=== PATIENT | male | born 1955 | race Two or more races ===

== ENCOUNTER 2018-02-02 21:12 | Inpatient (IN) | payer MEDICARE, MEDICAID ==
[~2018-02-02] VITALS: Ht 172.7 cm; Wt 90.1 kg
[~2018-02-02 21:12] MED LIST: AMLO10TA PO; ASPI-611 PO; CALCIUM ACETATE; CARV25TA PO; CLOP75TA15 PO; FURO80TA3 PO; HYDR-4070 PO; LANT1000 PO; LANTUS SUBCUT; LOSA100T28 PO; MULT-342 PO; SIMV20TA PO
[2018-02-02 22:27] LABS: BASOPHILS % (AUTO) 0.3 % (0-1); EOSINOPHILS # (AUTO) 0.2 X10'3 (0-0.9); EOSINOPHILS % (AUTO) 2.3 % (0-6); HEMOGLOBIN 11.4 g/dl (14.0-17.9); LYMPHOCYTES # (AUTO) 0.7 X10'3 (1.1-4.8); LYMPHOCYTES % (AUTO) 10.2 % (21-51); MEAN CORPUSCULAR HEMOGLOBIN 29.3 PG (27.0-31.0); MEAN CORPUSCULAR HGB CONC 34.5 % (33.0-36.5); MEAN CORPUSCULAR VOLUME 84.9 FL (78-98); MEAN PLATELET VOLUME 8.5 FL (7.4-10.4); MONOCYTES # (AUTO) 0.7 X10'3 (0-0.9); MONOCYTES % (AUTO) 10.2 % (2-12); NEUTROPHILS # (AUTO) 5.2 X10'3 (1.8-7.7); PLATELET COUNT 154 X10'3 (140-440); RED BLOOD COUNT 3.89 X10'6 (4.70-6.10); RED CELL DISTRIBUTION WIDTH 16.1 % (11.5-14.5); WHITE BLOOD COUNT 6.7 X10'3 (4.5-11.0)
[2018-02-02 22:32] LABS: PARTIAL THROMBOPLASTIN TIME 27 SECONDS (22-32); PROTHROMBIN TIME 10.1 SECONDS (9.0-12.0)
[2018-02-02 22:34] LABS: ALANINE AMINOTRANSFERASE 19 U/L (12-78); ALBUMIN 4.1 G/DL (3.4-5.0); ALBUMIN/GLOBULIN RATIO 1.4 (1.1-1.5); ALKALINE PHOSPHATASE 193 IU/L (46-116); ANION GAP 10 (8-16); ASPARTATE AMINO TRANSFERASE 24 U/L (10-37); BILIRUBIN,TOTAL 0.5 MG/DL (0.1-1.0); BLOOD UREA NITROGEN 31 MG/DL (7-18); BUN/CREATININE RATIO 28.4 (5.4-32.0); CALCIUM 9.2 MG/DL (8.5-10.1); CHLORIDE 103 MMOL/L (99-107); CREATININE 1.09 MG/DL (0.60-1.10); GLUCOSE 132 MG/DL (70-104); POTASSIUM 4.2 MMOL/L (3.5-5.1); SODIUM 137 MMOL/L (135-145); TOTAL PROTEIN 7.1 G/DL (6.4-8.2); eGFR 68 ML/MIN
[2018-02-02] MEDS ORDERED: FURO-150 PO (22:42)
[2018-02-02] MEDS ORDERED: HYDR100T27 PO (22:42)
[2018-02-02] MEDS ORDERED: CARV6.253 PO (22:42)
[2018-02-02] MEDS ORDERED: LOSA25TA96 PO (22:43)
[2018-02-02] MEDS ORDERED: TACR1CAP28 PO (22:43)
[2018-02-02] MEDS ORDERED: PANT40TA4 PO (22:43)
[2018-02-02] MEDS ORDERED: MYCO250C46 PO (22:43)
[2018-02-02] MEDS ORDERED: FINA5TAB11 PO ×2 (22:43→22:44)
[2018-02-02] MEDS ORDERED: FERR325T28 PO (22:43)
[2018-02-02] MEDS ORDERED: FLO0.4C PO (22:43)
[2018-02-02] MEDS ORDERED: nitroGLYCERIN 1gm ointment UD TP ONE (23:00)
[2018-02-03] MEDS: cloNIDine 0.1 mg tablet PO SCH ×4 (00:05→19:59)
[2018-02-03] MEDS ORDERED: HYDROcodone/acetaminophen 10/325mg tab PO PRN (00:25)
[2018-02-03] MEDS ORDERED: metoclopramide 5 mg/ml inj IV PRN (00:25)
[2018-02-03] MEDS ORDERED: HYDROcodone/acetaminophen 5mg/325mg tablet PO PRN (00:25)
[2018-02-03] MEDS ORDERED: HYDROmorphone inj. 0.5 MG/0.5 ML DISP.SYRIN IV PRN ×2 (00:25)
[2018-02-03] MEDS ORDERED: normal saline 1000ml 1,000 ML IV SCH (00:25)
[2018-02-03] MEDS ORDERED: diphenhydrAMINE 25mg capsule PO PRN (00:25)
[2018-02-03] MEDS ORDERED: morphine 4 MG/ML inj SYRINge IV PRN ×2 (00:25)
[2018-02-03] MEDS ORDERED: mag hydrox/Alum hydrox/simeth 30ml oral suspension PO PRN (00:25)
[2018-02-03] MEDS ORDERED: ondansetron/PF 4mg/2ml inj IV PRN (00:25)
[2018-02-03] MEDS ORDERED: bisacodyl 10mg suppository rectal RC PRN (00:25)
[2018-02-03] MEDS ORDERED: acetaminophen 650mg rectal suppository RC PRN (00:25)
[2018-02-03] MEDS ORDERED: diphenhydrAMINE 50 mg/ml inj IV PRN (00:25)
[2018-02-03] MEDS ORDERED: magnesium hydroxide 30ml (MOM) UD suspension PO PRN (00:25)
[2018-02-03] MEDS ORDERED: acetaminophen 325mg tablet PO PRN ×2 (00:25)
[2018-02-03] MEDS ORDERED: CAFFEINE CITRATE 60 MG/3 ML injection vial IV PRN (00:50)
[2018-02-03] MEDS ORDERED: metoprolol tartrate 1mg/ml inj IV PRN (00:50)
[2018-02-03] MEDS ORDERED: dextrose 50%-water 50ml dispensing syringe IV PRN ×2 (00:50)
[2018-02-03] MEDS ORDERED: nitroGLYCERIN 0.4mg SUBLingual tab SL PRN (00:50)
[2018-02-03] MEDS ORDERED: MESSAGE TO PHARMACY PO ONE (00:50)
[2018-02-03] MEDS ORDERED: glucagon, human recombinant 1mg kit SUBCUT PRN (00:50)
[2018-02-03] MEDS ORDERED: dextrose ORAL solution 15 GM/59 ML bottle PO PRN ×2 (00:50)
[2018-02-03] MEDS ORDERED: regadenoson 0.4mg/5ml syringe IV ONE (00:50)
[2018-02-03 01:23] LABS: HEMOGLOBIN A1C 7.5 % (4.5-6.2)
[2018-02-03 01:31] LABS: LIPASE 108 U/L (73-393); MAGNESIUM 1.7 MG/DL (1.5-2.4); PHOSPHORUS 3.4 MG/DL (2.3-4.5)
[2018-02-03 03:00] VITALS: BP 129/54
[2018-02-03 06:00] VITALS: BP 153/58
[2018-02-03] MEDS ORDERED: aspirin 81mg tablet.DR PO SCH (08:00)
[2018-02-03] MEDS ORDERED: finasteride 5mg tablet PO SCH (08:00)
[2018-02-03] MEDS ORDERED: atorvastatin 10mg tablet PO SCH (08:00)
[2018-02-03] MEDS ORDERED: tamsulosin 0.4mg capsule PO SCH (08:00)
[2018-02-03] MEDS ORDERED: pantoprazole 40mg Tablet.DR PO SCH (08:00)
[2018-02-03] MEDS ORDERED: amLODIPine 5mg tablet PO SCH (08:00)
[2018-02-03] MEDS ORDERED: losartan 25mg tablet PO SCH (08:00)
[2018-02-03] MEDS: ferrous sulfate 325mg tablet PO SCH ×2 (09:16→19:55)
[2018-02-03] MEDS: hydrALAZINE 25 MG tablet PO SCH ×2 (09:17→15:32)
[2018-02-03] MEDS: mycophenolate mofetil 250mg capsule PO SCH ×2 (09:17→19:58)
[2018-02-03] MEDS: docusate sod 100mg capsule PO SCH ×2 (09:17→19:56)
[2018-02-03] MEDS: tacrolimus anhydrous 1mg capsule PO SCH ×2 (09:17→19:57)
[2018-02-03] MEDS: carvedilol 6.25mg tablet PO SCH ×2 (09:18→20:00)
[2018-02-03 11:00] VITALS: BP 132/51
[2018-02-03] MEDS: insulin Lispro (HumaLOG) vial - multi-dose SQ SCH ×2 (13:18→19:20)
[2018-02-03] MEDS ORDERED: atorvastatin 20mg tablet PO SCH (13:50)
[2018-02-03 15:00] VITALS: BP 134/51
[2018-02-03 18:00] VITALS: BP 108/45
[2018-02-03] MEDS ORDERED: NITR0.4T51 SL (18:33)
== END 2018-02-03 21:45 | disposition home or self-care (01) | DRG 292 ==
LOC: ER 21:13 → ED HOLD 02-03 00:25 → PCU 3S 02-03 02:22
PROVIDERS: ADMIT Family Medicine; ATTEND Family Medicine
DX: I13.0 Hypertensive heart and chronic kidney disease with heart failure and stage 1 through stage 4 chronic kidney disease, or unspecified chronic kidney disease (principal); Z94.0 Kidney transplant status; Z91.041 Radiographic dye allergy status; E11.22 Type 2 diabetes mellitus with diabetic chronic kidney disease; I25.10 Atherosclerotic heart disease of native coronary artery without angina pectoris; I50.9 Heart failure, unspecified; F41.9 Anxiety disorder, unspecified; N18.9 Chronic kidney disease, unspecified; I25.2 Old myocardial infarction; Z79.82 Long term (current) use of aspirin; Z79.899 Other long term (current) drug therapy; Z79.4 Long term (current) use of insulin
CPT/HCPCS: 36415; 71045; 80053; 82948; 83036; 83690; 83735; 83880; 84100; 84484; 85025; 85610; 85730; 87070; 93005; 99285; J7030; J7507; J7517

== ENCOUNTER 2018-02-07 10:27 | Inpatient (IN) | payer MEDICARE, MEDICAID ==
[~2018-02-07] VITALS: Ht 172.7 cm; Wt 94.4 kg
[~2018-02-07 10:27] MED LIST changes: -CARV25TA PO; +CARV6.253 PO; -CLOP75TA15 PO; +FERR325T28 PO; +FINA5TAB11 PO; +FLO0.4C PO; +FURO-150 PO; -FURO80TA3 PO; -HYDR-4070 PO; +HYDR100T27 PO; -LANT1000 PO; -LOSA100T28 PO; +LOSA25TA96 PO; +MYCO250C46 PO; +NITR0.4T51 SL; +PANT40TA4 PO; +TACR1CAP28 PO
[2018-02-07 11:14] LABS: PARTIAL THROMBOPLASTIN TIME 28 SECONDS (22-32); PROTHROMBIN TIME 10.4 SECONDS (9.0-12.0)
[2018-02-07 11:15] LABS: EOSINOPHILS # (AUTO) 0.1 X10'3 (0-0.9); HEMATOCRIT 32.5 % (42.0-52.0); HEMOGLOBIN 11.1 g/dl (14.0-17.9); LYMPHOCYTES # (AUTO) 0.5 X10'3 (1.1-4.8); MEAN CORPUSCULAR HEMOGLOBIN 29.5 PG (27.0-31.0); MONOCYTES # (AUTO) 0.6 X10'3 (0-0.9); RED CELL DISTRIBUTION WIDTH 15.5 % (11.5-14.5)
[2018-02-07 11:18] LABS: ALANINE AMINOTRANSFERASE 17 U/L (12-78); ALBUMIN/GLOBULIN RATIO 1.3 (1.1-1.5); ALKALINE PHOSPHATASE 206 IU/L (46-116); ANION GAP 10 (8-16); ASPARTATE AMINO TRANSFERASE 22 U/L (10-37); BILIRUBIN,TOTAL 0.7 MG/DL (0.1-1.0); BLOOD UREA NITROGEN 41 MG/DL (7-18); BUN/CREATININE RATIO 31.5 (5.4-32.0); CALCIUM 9.2 MG/DL (8.5-10.1); CHLORIDE 99 MMOL/L (99-107); GLUCOSE 285 MG/DL (70-104); POTASSIUM 4.3 MMOL/L (3.5-5.1); SODIUM 132 MMOL/L (135-145); TOTAL CARBON DIOXIDE 22.9 MMOL/L (24-32); TOTAL PROTEIN 7.2 G/DL (6.4-8.2); eGFR 56 ML/MIN
[2018-02-07 11:23] LABS: BASOPHILS % (AUTO) 0.5 % (0-1); EOSINOPHILS % (AUTO) 1.4 % (0-6); LYMPHOCYTES % (AUTO) 8.8 % (21-51); MEAN CORPUSCULAR VOLUME 86.9 FL (78-98); MEAN PLATELET VOLUME 9.1 FL (7.4-10.4); MONOCYTES % (AUTO) 9.8 % (2-12); NEUTROPHILS # (AUTO) 4.8 X10'3 (1.8-7.7); NEUTROPHILS % (AUTO) 79.5 % (42-75); PLATELET COUNT 143 X10'3 (140-440); RED BLOOD COUNT 3.74 X10'6 (4.70-6.10); WHITE BLOOD COUNT 5.9 X10'3 (4.5-11.0)
[2018-02-07] MEDS ORDERED: INSU100C4 SQ (11:58)
[2018-02-07] MEDS ORDERED: acetaminophen 325mg tablet PO PRN (12:55)
[2018-02-07] MEDS ORDERED: mag hydrox/Alum hydrox/simeth 30ml oral suspension PO PRN (12:55)
[2018-02-07] MEDS ORDERED: magnesium hydroxide 30ml (MOM) UD suspension PO PRN (12:55)
[2018-02-07] MEDS ORDERED: ondansetron/PF 4mg/2ml inj IV PRN (12:55)
[2018-02-07] MEDS ORDERED: morphine 4 MG/ML inj SYRINge IV PRN ×2 (12:55)
[2018-02-07] MEDS: normal saline 1000ml 1,000 ML IV SCH ×2 (13:27→18:02)
[2018-02-07] MEDS ORDERED: nitroGLYCERIN 0.4mg SUBLingual tab SL PRN (14:05)
[2018-02-07 15:45] VITALS: BP 195/68
[2018-02-07] MEDS ORDERED: HYDRALAZINE HCL PO SCH (16:00)
[2018-02-07] MEDS: hydrALAZINE 25 MG tablet PO SCH (16:51)
[2018-02-07] MEDS ORDERED: glucagon, human recombinant 1mg kit SUBCUT PRN (16:55)
[2018-02-07] MEDS ORDERED: dextrose 50%-water 50ml dispensing syringe IV PRN ×2 (16:55)
[2018-02-07] MEDS ORDERED: dextrose ORAL solution 15 GM/59 ML bottle PO PRN ×2 (16:55)
[2018-02-07] MEDS ORDERED: MESSAGE TO PHARMACY PO ONE (16:55)
[2018-02-07] MEDS ORDERED: insulin Lispro (HumaLOG) vial - multi-dose SQ SCH (16:55)
[2018-02-07 18:00] VITALS: BP 172/64
[2018-02-07] MEDS: calcium acetate 667mg (PhosLO) capsule PO SCH (18:00)
[2018-02-07] MEDS: insulin glargine (Lantus) pen - multi-dose SQ SCH ×2 (20:00→22:31)
[2018-02-07] MEDS: mycophenolate mofetil 250mg capsule PO SCH (20:25)
[2018-02-07] MEDS: ferrous sulfate 325mg tablet PO SCH (20:25)
[2018-02-07] MEDS: tacrolimus anhydrous 1mg capsule PO SCH (20:25)
[2018-02-07] MEDS: carvedilol 6.25mg tablet PO SCH (20:25)
[2018-02-07] MEDS ORDERED: CALCIUM ACETATE 667 MG SCH (21:00)
[2018-02-07 22:00] VITALS: BP 147/56
[2018-02-08] MEDS: hydrALAZINE 25 MG tablet PO SCH ×3 (00:03→16:20)
[2018-02-08 03:00] VITALS: BP 156/60
[2018-02-08] MEDS: normal saline 1000ml 1,000 ML IV SCH (03:16)
[2018-02-08 05:02] LABS: BASOPHILS % (AUTO) 0.3 % (0-1); EOSINOPHILS # (AUTO) 0.1 X10'3 (0-0.9); EOSINOPHILS % (AUTO) 1.8 % (0-6); HEMOGLOBIN 10.4 g/dl (14.0-17.9); LYMPHOCYTES # (AUTO) 0.7 X10'3 (1.1-4.8); LYMPHOCYTES % (AUTO) 15.9 % (21-51); MEAN CORPUSCULAR HEMOGLOBIN 28.7 PG (27.0-31.0); MEAN CORPUSCULAR HGB CONC 33.6 % (33.0-36.5); MEAN CORPUSCULAR VOLUME 85.5 FL (78-98); MEAN PLATELET VOLUME 8.7 FL (7.4-10.4); MONOCYTES # (AUTO) 0.7 X10'3 (0-0.9); MONOCYTES % (AUTO) 17.1 % (2-12); NEUTROPHILS # (AUTO) 2.7 X10'3 (1.8-7.7); NEUTROPHILS % (AUTO) 64.9 % (42-75); PLATELET COUNT 130 X10'3 (140-440); RED BLOOD COUNT 3.63 X10'6 (4.70-6.10); RED CELL DISTRIBUTION WIDTH 16.2 % (11.5-14.5); WHITE BLOOD COUNT 4.1 X10'3 (4.5-11.0)
[2018-02-08 05:34] LABS: ALBUMIN 3.7 G/DL (3.4-5.0); ANION GAP 10 (8-16); BLOOD UREA NITROGEN 36 MG/DL (7-18); BUN/CREATININE RATIO 27.1 (5.4-32.0); CALCIUM 9.4 MG/DL (8.5-10.1); CHLORIDE 104 MMOL/L (99-107); CREATININE 1.33 MG/DL (0.60-1.10); GLUCOSE 149 MG/DL (70-104); POTASSIUM 4.2 MMOL/L (3.5-5.1); SODIUM 136 MMOL/L (135-145); TOTAL CARBON DIOXIDE 22.3 MMOL/L (24-32); eGFR 54 ML/MIN
[2018-02-08 06:30] VITALS: BP 147/51
[2018-02-08] MEDS ORDERED: dextrose 50%-water 50ml dispensing syringe IV PRN (07:30)
[2018-02-08] MEDS ORDERED: MESSAGE TO NURSING PO ONE ×5 (07:30→10:00)
[2018-02-08] MEDS: calcium acetate 667mg (PhosLO) capsule PO SCH ×3 (07:34→19:02)
[2018-02-08] MEDS: carvedilol 6.25mg tablet PO SCH ×2 (07:35→20:16)
[2018-02-08] MEDS: ferrous sulfate 325mg tablet PO SCH ×2 (07:35→20:16)
[2018-02-08] MEDS: tamsulosin 0.4mg capsule PO SCH (07:35)
[2018-02-08] MEDS ORDERED: losartan 25mg tablet PO SCH (08:00)
[2018-02-08] MEDS ORDERED: amLODIPine 5mg tablet PO SCH (08:00)
[2018-02-08] MEDS: mycophenolate mofetil 250mg capsule PO SCH ×2 (08:00→20:16)
[2018-02-08] MEDS: tacrolimus anhydrous 1mg capsule PO SCH ×2 (08:00→20:16)
[2018-02-08] MEDS ORDERED: aspirin 81mg tablet.DR PO SCH (08:00)
[2018-02-08] MEDS: finasteride 5mg tablet PO SCH (08:00)
[2018-02-08] MEDS ORDERED: non-formulary drug (Aspirin (Aspir 81) 1 TAB) PO SCH (08:00)
[2018-02-08] MEDS: insulin glargine (Lantus) pen - multi-dose SQ SCH ×3 (08:00→21:00)
[2018-02-08] MEDS ORDERED: non-formulary drug (Simvastatin (Zocor) 1 TAB) PO SCH (08:00)
[2018-02-08] MEDS ORDERED: atorvastatin 10mg tablet PO SCH (08:00)
[2018-02-08] MEDS ORDERED: furosemide 20MG tablet PO SCH (08:00)
[2018-02-08] MEDS ORDERED: non-formulary drug (Amlodipine Besylate 1 TABLET) PO SCH (08:00)
[2018-02-08 08:22] LABS: ALANINE AMINOTRANSFERASE 17 U/L (12-78); ALBUMIN 3.9 G/DL (3.4-5.0); ALBUMIN/GLOBULIN RATIO 1.2 (1.1-1.5); ALKALINE PHOSPHATASE 183 IU/L (46-116); ANION GAP 8 (8-16); ASPARTATE AMINO TRANSFERASE 26 U/L (10-37); BILIRUBIN,TOTAL 0.7 MG/DL (0.1-1.0); BLOOD UREA NITROGEN 32 MG/DL (7-18); BUN/CREATININE RATIO 25.8 (5.4-32.0); CALCIUM 9.4 MG/DL (8.5-10.1); CHLORIDE 103 MMOL/L (99-107); CREATININE 1.24 MG/DL (0.60-1.10); GLUCOSE 181 MG/DL (70-104); POTASSIUM 4.6 MMOL/L (3.5-5.1); SODIUM 137 MMOL/L (135-145); TOTAL CARBON DIOXIDE 25.7 MMOL/L (24-32); TOTAL PROTEIN 7.2 G/DL (6.4-8.2); eGFR 59 ML/MIN
[2018-02-08 08:33] LABS: PARTIAL THROMBOPLASTIN TIME 28 SECONDS (22-32); PROTHROMBIN TIME 10.4 SECONDS (9.0-12.0)
[2018-02-08 08:34] LABS: HEMOGLOBIN A1C 7.4 % (4.5-6.2)
[2018-02-08] MEDS: insulin Lispro (HumaLOG) vial - multi-dose SQ SCH ×2 (10:12→14:15)
[2018-02-08 11:00] VITALS: BP 141/55
[2018-02-08] MEDS ORDERED: morphine 2 MG/ML inj. syringe IV PRN (12:30)
[2018-02-08] MEDS ORDERED: morphine 4 MG/ML inj SYRINge IV PRN (12:30)
[2018-02-08 15:00] VITALS: BP 166/58
[2018-02-08] MEDS ORDERED: ringers solution, lacted 1,000 ML IV ONE (17:53)
[2018-02-08 18:00] VITALS: BP 124/48
[2018-02-08] MEDS: mupirocin 2% nasal ointment 1gm UD NS SCH (20:16)
[2018-02-08 22:00] VITALS: BP 156/58
[2018-02-09] VITALS (16 sets, daily range): BP systolic 108–170; BP diastolic 44–72
[2018-02-09] MEDS: hydrALAZINE 25 MG tablet PO SCH (00:08)
[2018-02-09 03:11] LABS: ABG BASE EXCESS -1.9 mmol/L (-2.0-3.0); ABG OXYGEN SATURATION 96.7 % (95-98); ABG PCO2 (T) 34.2 mmHg (35.0-48.0); ABG PH (T) 7.425 (7.350-7.450); ABG PO2 (T) 92.7 mmHg (83-108); FCOHb 0.3 % (0.5-1.5); FMetHb 0.4 % (0.3-1.12); PATIENT TEMPERATURE 36.6; RESPIRATORY RATE (OBSERVED) 16 b/min; TOTAL HEMOGLOBIN 11.9 G/dl (14.0-18.0)
[2018-02-09] MEDS ORDERED: vancomycin/NS 1 GM ADD-VANTAGE 250 ML IV ONE (05:00)
[2018-02-09] MEDS ORDERED: cefazolin/dext.iso 2gm/50ml 50 ML IV ONE (05:00)
[2018-02-09] MEDS ORDERED: metoprolol tartrate 12.5mg (1/2 tablet) PO PRN (05:00)
[2018-02-09 05:40] LABS: BASOPHILS % (AUTO) 0.4 % (0-1); EOSINOPHILS # (AUTO) 0.1 X10'3 (0-0.9); EOSINOPHILS % (AUTO) 1.7 % (0-6); HEMATOCRIT 33.2 % (42.0-52.0); HEMOGLOBIN 11.3 g/dl (14.0-17.9); LYMPHOCYTES # (AUTO) 0.6 X10'3 (1.1-4.8); LYMPHOCYTES % (AUTO) 11.2 % (21-51); MEAN CORPUSCULAR HGB CONC 33.9 % (33.0-36.5); MEAN CORPUSCULAR VOLUME 85.5 FL (78-98); MEAN PLATELET VOLUME 8.9 FL (7.4-10.4); MONOCYTES # (AUTO) 0.7 X10'3 (0-0.9); MONOCYTES % (AUTO) 12.6 % (2-12); NEUTROPHILS % (AUTO) 74.1 % (42-75); PLATELET COUNT 142 X10'3 (140-440); RED BLOOD COUNT 3.89 X10'6 (4.70-6.10); RED CELL DISTRIBUTION WIDTH 16.4 % (11.5-14.5); WHITE BLOOD COUNT 5.4 X10'3 (4.5-11.0)
[2018-02-09 05:44] LABS: PROTHROMBIN TIME 10.4 SECONDS (9.0-12.0)
[2018-02-09 05:48] LABS: ANION GAP 8 (8-16); BLOOD UREA NITROGEN 24 MG/DL (7-18); BUN/CREATININE RATIO 23.8 (5.4-32.0); CALCIUM 9.6 MG/DL (8.5-10.1); CHLORIDE 103 MMOL/L (99-107); CREATININE 1.01 MG/DL (0.60-1.10); GLUCOSE 177 MG/DL (70-104); POTASSIUM 4.4 MMOL/L (3.5-5.1); SODIUM 136 MMOL/L (135-145); TOTAL CARBON DIOXIDE 25.2 MMOL/L (24-32); eGFR 75 ML/MIN
[2018-02-09] MEDS: mupirocin 2% nasal ointment 1gm UD NS SCH ×2 (05:58→20:36)
[2018-02-09] MEDS ORDERED: famotidine 20mg tablet PO ONE (06:00)
[2018-02-09] MEDS ORDERED: LORazepam 2 mg/ml vial IV ONE (06:00)
[2018-02-09] MEDS ORDERED: methylPREDNISolone sod. succ. 500mg inj ONE (07:00)
[2018-02-09] MEDS ORDERED: potassium Cl 2 mEq/ml inj IV ONE (07:00)
[2018-02-09] MEDS ORDERED: sodium bicarbonate (8.4%) 1 mEq/ml syringe ONE (07:00)
[2018-02-09] MEDS ORDERED: magnesium sulf 1 GM/2 ML ONE (07:00)
[2018-02-09] MEDS ORDERED: LIDOcaine 2% (20 mg/ml) 5ml cardiac syringe ONE (07:00)
[2018-02-09] MEDS ORDERED: albumin (human) 25% 100 ML IV solution IV ONE (07:00)
[2018-02-09] MEDS ORDERED: phenylephrine 10mg/ml inj. ONE ×2 (07:00→07:21)
[2018-02-09] MEDS ORDERED: heparin 10,000 units/1 ML INJ ONE (07:00)
[2018-02-09] MEDS ORDERED: aminocaproic acid 250 MG/1 ML inj. ONE (07:00)
[2018-02-09] MEDS ORDERED: MIDAZolam 1mg/ml 10ml vial ONE (07:14)
[2018-02-09] MEDS ORDERED: SUFENTANIL CITRATE 50 MCG/ML 2ml ampule IV ONE (07:14)
[2018-02-09] MEDS ORDERED: LIDOcaine 2% (20mg/ml) 5ml vial ONE (07:18)
[2018-02-09] MEDS ORDERED: rocuronium 10mg/ml inj IV ONE ×2 (07:18)
[2018-02-09] MEDS ORDERED: epiNEPHrine 1 mg/ml inj ONE (07:21)
[2018-02-09] MEDS: normal saline 1000ml 1,000 ML IV SCH (07:46)
[2018-02-09] MEDS ORDERED: protamine sulf. 10mg/ml inj. IV ONE (07:46)
[2018-02-09] MEDS ORDERED: ondansetron/PF 4mg/2ml inj ONE (07:46)
[2018-02-09] MEDS ORDERED: isoflurane 100ml inhalation liquid IH ONE (07:46)
[2018-02-09] MEDS ORDERED: nitroGLYCERIN in D5W 50mg/250ml (Tridil) infusion IV ONE (07:46)
[2018-02-09] MEDS ORDERED: propofol inj 20 ML IV ONE (07:51)
[2018-02-09] MEDS: tacrolimus anhydrous 1mg capsule PO SCH (08:00)
[2018-02-09] MEDS: tamsulosin 0.4mg capsule PO SCH (08:00)
[2018-02-09] MEDS: finasteride 5mg tablet PO SCH (08:00)
[2018-02-09] MEDS: mycophenolate mofetil 250mg capsule PO SCH ×2 (08:00→20:00)
[2018-02-09 08:45] LABS: ABG BASE EXCESS -3.8 mmol/L (-2.0-3.0); ABG HCO3 20.7 mmol/L (22.0-26.0); ABG OXYGEN SATURATION 98.8 % (95-98); ABG PCO2 35.3 mmHg (35.0-45.0); ABG PH 7.386 (7.350-7.450); CL (ABG) 105 mmol/L (99-107); FCOHb 0.3 % (0.5-1.5); FMetHb 0.5 % (0.3-1.12); GLUCOSE (ABG) 211 mg/dl (70-105); K (ABG) 4.2 mmol/L (3.3-5.1); NA (ABG) 129 mmol/L (135-145); TOTAL HEMOGLOBIN 10.6 G/dl (14.0-18.0)
[2018-02-09] MEDS ORDERED: papaverine 30 mg/ml 2ml inj. IA ONE (09:00)
[2018-02-09] MEDS ORDERED: heparin 10,000 units/1 ML INJ IR ONE (09:01)
[2018-02-09 09:26] LABS: ABG BASE EXCESS VENOUS -3.8 mmol/L; ABG HCO3 VENOUS 22.8 mmol/L; ABG PCO2 VENOUS 48.4 mmHg; ABG PO2 VENOUS 54.3 mmHg; CL (ABG) 106 mmol/L (99-107); FCOHb VENOUS 0.2 %; FHHb VENOUS 15.5 %; FMetHb VENOUS 0.4 %; FO2Hb VENOUS 83.9 %; GLUCOSE (ABG) 173 mg/dl (70-105); IONIZED CA (ABG) 1.24 mmol/L (1.03-1.32); NA (ABG) 134 mmol/L (135-145)
[2018-02-09] MEDS ORDERED: meropenem inj 1 GM in normal saline 100ml IV soln 100 ML IV STA (09:28)
[2018-02-09 10:01] LABS: ABG BASE EXCESS -2.8 mmol/L (-2.0-3.0); ABG HCO3 21.4 mmol/L (22.0-26.0); ABG OXYGEN SATURATION 99.2 % (95-98); ABG PCO2 34.1 mmHg (35.0-45.0); ABG PH 7.415 (7.350-7.450); CL (ABG) 104 mmol/L (99-107); FCOHb 0.2 % (0.5-1.5); FMetHb 0.7 % (0.3-1.12); FO2Hb 98.3 % (94-100); GLUCOSE (ABG) 125 mg/dl (70-105); IONIZED CA (ABG) 1.12 mmol/L (1.03-1.32); K (ABG) 5.1 mmol/L (3.3-5.1); NA (ABG) 130 mmol/L (135-145); TOTAL HEMOGLOBIN 8.2 G/dl (14.0-18.0)
[2018-02-09 10:05] LABS: ABG BASE EXCESS VENOUS -2.3 mmol/L; ABG HCO3 VENOUS 22.8 mmol/L; ABG PCO2 VENOUS 40.6 mmHg; ABG PO2 VENOUS 48.3 mmHg; CL (ABG) 104 mmol/L (99-107); FCOHb VENOUS 0.5 %; FHHb VENOUS 16.7 %; FMetHb VENOUS 0.8 %; GLUCOSE (ABG) 128 mg/dl (70-105); IONIZED CA (ABG) 1.14 mmol/L (1.03-1.32); K (ABG) 4.7 mmol/L (3.3-5.1); NA (ABG) 131 mmol/L (135-145); TOTAL HEMOGLOBIN 8.3 G/dl (14.0-18.0)
[2018-02-09] MEDS ORDERED: ipratropium/albuterol 3ml nebule IH PRN (10:15)
[2018-02-09 10:31] LABS: ABG BASE EXCESS -2.2 mmol/L (-2.0-3.0); ABG HCO3 22.5 mmol/L (22.0-26.0); ABG OXYGEN SATURATION 99.3 % (95-98); ABG PCO2 38.1 mmHg (35.0-45.0); ABG PH 7.389 (7.350-7.450); ABG PO2 348.2 mmHg (60.0-100.0); CL (ABG) 105 mmol/L (99-107); FCOHb 0.3 % (0.5-1.5); FMetHb 0.6 % (0.3-1.12); FO2Hb 98.4 % (94-100); GLUCOSE (ABG) 119 mg/dl (70-105); IONIZED CA (ABG) 1.16 mmol/L (1.03-1.32); NA (ABG) 131 mmol/L (135-145); TOTAL HEMOGLOBIN 8.5 G/dl (14.0-18.0)
[2018-02-09 11:25] LABS: ABG BASE EXCESS -1.3 mmol/L (-2.0-3.0); ABG HCO3 23.1 mmol/L (22.0-26.0); ABG OXYGEN SATURATION 98.9 % (95-98); ABG PCO2 36.7 mmHg (35.0-45.0); ABG PH 7.416 (7.350-7.450); ABG PO2 326.2 mmHg (60.0-100.0); CL (ABG) 105 mmol/L (99-107); FMetHb 0.8 % (0.3-1.12); FO2Hb 98.1 % (94-100); GLUCOSE (ABG) 112 mg/dl (70-105); IONIZED CA (ABG) 1.42 mmol/L (1.03-1.32); NA (ABG) 130 mmol/L (135-145); TOTAL HEMOGLOBIN 8.4 G/dl (14.0-18.0)
[2018-02-09] MEDS ORDERED: ceFAZolin 1000mg inj ONE (11:29)
[2018-02-09 11:40] LABS: ABG BASE EXCESS -0.2 mmol/L (-2.0-3.0); ABG HCO3 24.2 mmol/L (22.0-26.0); ABG PCO2 38.4 mmHg (35.0-45.0); ABG PH 7.418 (7.350-7.450); ABG PO2 342.9 mmHg (60.0-100.0); CL (ABG) 107 mmol/L (99-107); FMetHb 0.8 % (0.3-1.12); FO2Hb 98.2 % (94-100); GLUCOSE (ABG) 111 mg/dl (70-105); IONIZED CA (ABG) 1.38 mmol/L (1.03-1.32); K (ABG) 5.1 mmol/L (3.3-5.1); NA (ABG) 131 mmol/L (135-145); TOTAL HEMOGLOBIN 8.5 G/dl (14.0-18.0)
[2018-02-09 12:15] LABS: ABG BASE EXCESS VENOUS -0.8 mmol/L; ABG HCO3 VENOUS 24.4 mmol/L; ABG PCO2 VENOUS 42.6 mmHg; ABG PO2 VENOUS 41.2 mmHg; CL (ABG) 107 mmol/L (99-107); FCOHb VENOUS 0.4 %; FMetHb VENOUS 0.8 %; FO2Hb VENOUS 73.8 %; GLUCOSE (ABG) 115 mg/dl (70-105); K (ABG) 4.9 mmol/L (3.3-5.1); NA (ABG) 133 mmol/L (135-145)
[2018-02-09] MEDS ORDERED: niCARDipine/sod cl 20mg/200ml 200 ML IV PRN (12:47)
[2018-02-09] MEDS ORDERED: nitroGLYCERIN-Tridil 50MG/D5W 250 ML IV PRN (12:47)
[2018-02-09] MEDS ORDERED: DOPamine 400mg/D5W 250ml 250 ML IV PRN (12:47)
[2018-02-09] MEDS ORDERED: sodium chloride 0.45% 1,000 ML IV SCH (12:47)
[2018-02-09] MEDS ORDERED: potassium Cl 20mEq/100mL bag 100 ML IV PRN ×3 (12:50)
[2018-02-09] MEDS ORDERED: albumin (Human) 5% 250ml 250 ML IV PRN (12:50)
[2018-02-09] MEDS ORDERED: magnesium 4gm in 100ml NS 100 ML IV PRN (12:50)
[2018-02-09] MEDS ORDERED: metoclopramide 5 mg/ml inj IV PRN (12:50)
[2018-02-09] MEDS ORDERED: acetaminophen 325mg tablet PO PRN (12:50)
[2018-02-09] MEDS ORDERED: sodium phosphate inj. 15 MMOL in dextrose 5%-water 150 ML IV PRN (12:50)
[2018-02-09] MEDS ORDERED: ondansetron/PF 4mg/2ml inj IV PRN (12:50)
[2018-02-09] MEDS ORDERED: magnesium 1gm/100ml D5W IVPB 100 ML IV PRN (12:50)
[2018-02-09] MEDS ORDERED: insulin regular, human inj. 100 UNITS in normal saline 100ml IV soln 100 ML IV SCH ×2 (12:50)
[2018-02-09] MEDS ORDERED: dextrose 50%-water 50ml dispensing syringe IV PRN (12:50)
[2018-02-09] MEDS ORDERED: Neutra Phos packet PO PRN (12:50)
[2018-02-09] MEDS ORDERED: normal saline 250ml IV soln 250 ML IV PRN (12:50)
[2018-02-09] MEDS ORDERED: magnesium hydroxide 30ml (MOM) UD suspension PO PRN (12:50)
[2018-02-09] MEDS ORDERED: sodium phosphate inj. 30 MMOL in dextrose 5%-water 250 ML IV PRN (12:50)
[2018-02-09 12:51] LABS: ACT @ 1.70 U 386 SEC (193-297); ACT @ 2.84 U 561 SEC (260-420); BASELINE ACT 158 SEC (101-148); PATIENT WEIGHT 66.0k KG
[2018-02-09 12:51] LABS: ACTIVATED CLOTTING TIME 129 SEC (101-148)
[2018-02-09] MEDS: insulin Lispro (HumaLOG) vial - multi-dose SQ SCH ×2 (13:00→18:00)
[2018-02-09 13:26] LABS: BASOPHILS % (AUTO) 0.1 % (0-1); EOSINOPHILS # (AUTO) 0.2 X10'3 (0-0.9); EOSINOPHILS % (AUTO) 1.3 % (0-6); HEMATOCRIT 31.2 % (42.0-52.0); HEMOGLOBIN 10.5 g/dl (14.0-17.9); LYMPHOCYTES # (AUTO) 0.7 X10'3 (1.1-4.8); MEAN CORPUSCULAR HEMOGLOBIN 28.9 PG (27.0-31.0); MEAN CORPUSCULAR HGB CONC 33.6 % (33.0-36.5); MEAN CORPUSCULAR VOLUME 86.1 FL (78-98); MEAN PLATELET VOLUME 8.3 FL (7.4-10.4); MONOCYTES # (AUTO) 1.1 X10'3 (0-0.9); MONOCYTES % (AUTO) 6.8 % (2-12); NEUTROPHILS # (AUTO) 14.7 X10'3 (1.8-7.7); NEUTROPHILS % (AUTO) 87.8 % (42-75); PLATELET COUNT 136 X10'3 (140-440); RED BLOOD COUNT 3.63 X10'6 (4.70-6.10); WHITE BLOOD COUNT 16.7 X10'3 (4.5-11.0)
[2018-02-09 13:36] LABS: INR 1.1 INR; PARTIAL THROMBOPLASTIN TIME 25 SECONDS (22-32)
[2018-02-09 13:40] LABS: ABG BASE EXCESS -3.3 mmol/L (-2.0-3.0); ABG HCO3 21.1 mmol/L (22.0-26.0); ABG OXYGEN SATURATION 98.7 % (95-98); ABG PCO2 (T) 35.5 mmHg (35.0-48.0); ABG PH (T) 7.391 (7.350-7.450); ABG PO2 (T) 188.2 mmHg (83-108); FCOHb 0.3 % (0.5-1.5); FLOW 100 L/min; FMetHb 0.4 % (0.3-1.12); PATIENT TEMPERATURE 36.9; PEEP 5 cm H2O; RESPIRATORY RATE 12 b/min; TIDAL VOLUME 600 mL; TOTAL HEMOGLOBIN 11.6 G/dl (14.0-18.0)
[2018-02-09 13:41] LABS: ALANINE AMINOTRANSFERASE 17 U/L (12-78); ALBUMIN 3.1 G/DL (3.4-5.0); ALBUMIN/GLOBULIN RATIO 1.5 (1.1-1.5); ALKALINE PHOSPHATASE 127 IU/L (46-116); ANION GAP 6 (8-16); ASPARTATE AMINO TRANSFERASE 65 U/L (10-37); BILIRUBIN,TOTAL 0.5 MG/DL (0.1-1.0); BLOOD UREA NITROGEN 23 MG/DL (7-18); BUN/CREATININE RATIO 15.2 (5.4-32.0); CALCIUM 9.7 MG/DL (8.5-10.1); CHLORIDE 109 MMOL/L (99-107); CREATININE 1.51 MG/DL (0.60-1.10); GLUCOSE 124 MG/DL (70-104); POTASSIUM 4.3 MMOL/L (3.5-5.1); SODIUM 139 MMOL/L (135-145); TOTAL CARBON DIOXIDE 23.6 MMOL/L (24-32); TOTAL PROTEIN 5.2 G/DL (6.4-8.2); eGFR 47 ML/MIN
[2018-02-09 13:51] LABS: MAGNESIUM 4.7 MG/DL (1.5-2.4); PHOSPHORUS 1.1 MG/DL (2.3-4.5)
[2018-02-09] MEDS: morphine 4 MG/ML inj SYRINge IV PRN ×5 (14:11→19:23)
[2018-02-09] MEDS: insulin regular, human inj. 100 UNITS in normal saline 100ml IV soln 100 ML IV SCH ×8 (14:16→21:14)
[2018-02-09 15:33] LABS: CLARITY,URINE CLEAR (Clear); COLOR,URINE STRAW (Yellow); GLUCOSE, URINE NEGATIVE (Neg); KETONES,URINE NEGATIVE (Neg); LEUKOCYTE ESTERASE ,URINE SMALL (Neg); NITRITES, URINE NEGATIVE (Neg); OCCULT BLOOD,URINE SMALL (Neg); PROTEIN,URINE NEGATIVE (Neg); UROBILINOGEN,URINE 0.2 E.U/dL (0.2-1.0)
[2018-02-09] MEDS: ceFAZolin 1GM/D5W- ADD-VANTAGE 50 ML IV SCH (15:35)
[2018-02-09 15:40] LABS: UA COLLECTION TYPE FOLEY CATH
[2018-02-09 15:43] LABS: SQUAMOUS EPITHELIAL CELL,UR FEW /LPF (FEW); WBC,URINE 20-30 /HPF (0-4)
[2018-02-09 15:44] LABS: BACTERIA,URINE 1+ /HPF (Neg)
[2018-02-09] MEDS: docusate sod 100mg capsule PO SCH (20:00)
[2018-02-09] MEDS ORDERED: mupirocin 2% ointment 22GM NS SCH (20:00)
[2018-02-09 20:26] LABS: BASOPHILS % (AUTO) 0 % (0-1); EOSINOPHILS % (AUTO) 0 % (0-6); HEMATOCRIT 27.3 % (42.0-52.0); HEMOGLOBIN 9.3 g/dl (14.0-17.9); LYMPHOCYTES # (AUTO) 0.3 X10'3 (1.1-4.8); LYMPHOCYTES % (AUTO) 2.4 % (21-51); MEAN CORPUSCULAR HEMOGLOBIN 29.2 PG (27.0-31.0); MEAN CORPUSCULAR HGB CONC 33.9 % (33.0-36.5); MEAN CORPUSCULAR VOLUME 86.2 FL (78-98); MEAN PLATELET VOLUME 8.4 FL (7.4-10.4); MONOCYTES % (AUTO) 6.7 % (2-12); NEUTROPHILS # (AUTO) 13.2 X10'3 (1.8-7.7); NEUTROPHILS % (AUTO) 90.9 % (42-75); PLATELET COUNT 119 X10'3 (140-440); RED BLOOD COUNT 3.17 X10'6 (4.70-6.10); RED CELL DISTRIBUTION WIDTH 16.6 % (11.5-14.5); WHITE BLOOD COUNT 14.5 X10'3 (4.5-11.0)
[2018-02-09 20:35] LABS: ALBUMIN 3.4 G/DL (3.4-5.0); ANION GAP 8 (8-16); BLOOD UREA NITROGEN 25 MG/DL (7-18); BUN/CREATININE RATIO 17.9 (5.4-32.0); CALCIUM 9.9 MG/DL (8.5-10.1); CHLORIDE 111 MMOL/L (99-107); GLUCOSE 108 MG/DL (70-104); POTASSIUM 4.8 MMOL/L (3.5-5.1); SODIUM 141 MMOL/L (135-145); TOTAL CARBON DIOXIDE 21.9 MMOL/L (24-32); eGFR 51 ML/MIN
[2018-02-09] MEDS: vancomycin/NS 1 GM ADD-VANTAGE 250 ML IV SCH (20:51)
[2018-02-09 23:16] LABS: ABG BASE EXCESS -5.8 mmol/L (-2.0-3.0); ABG OXYGEN SATURATION 97.8 % (95-98); ABG PCO2 (T) 34.6 mmHg (35.0-48.0); ABG PH (T) 7.359 (7.350-7.450); ABG PO2 (T) 140.2 mmHg (83-108); FCOHb 0.2 % (0.5-1.5); FMetHb 0.3 % (0.3-1.12); FO2Hb 97.3 % (94-100); MINUTE VOLUME 6 L/min; PATIENT TEMPERATURE 37.1; PEEP 5 cm H2O; RESPIRATORY RATE (OBSERVED) 10 b/min; TOTAL HEMOGLOBIN 9.3 G/dl (14.0-18.0)
[2018-02-10] VITALS (23 sets, daily range): BP systolic 82–161; BP diastolic 44–70
[2018-02-10] MEDS: ceFAZolin 1GM/D5W- ADD-VANTAGE 50 ML IV SCH ×3 (00:08→16:44)
[2018-02-10] MEDS: morphine 4 MG/ML inj SYRINge IV PRN ×3 (02:19→16:51)
[2018-02-10] MEDS: insulin regular, human inj. 100 UNITS in normal saline 100ml IV soln 100 ML IV SCH ×2 (02:39)
[2018-02-10 02:47] LABS: BASOPHILS % (AUTO) 0.1 % (0-1); EOSINOPHILS # (AUTO) 0.2 X10'3 (0-0.9); EOSINOPHILS % (AUTO) 1.3 % (0-6); HEMOGLOBIN 8.1 g/dl (14.0-17.9); LYMPHOCYTES # (AUTO) 0.4 X10'3 (1.1-4.8); MEAN CORPUSCULAR HEMOGLOBIN 29.2 PG (27.0-31.0); MEAN CORPUSCULAR HGB CONC 33.9 % (33.0-36.5); MEAN PLATELET VOLUME 9.3 FL (7.4-10.4); MONOCYTES # (AUTO) 0.7 X10'3 (0-0.9); MONOCYTES % (AUTO) 5.5 % (2-12); NEUTROPHILS # (AUTO) 11.1 X10'3 (1.8-7.7); NEUTROPHILS % (AUTO) 90.1 % (42-75); PLATELET COUNT 94 X10'3 (140-440); RED BLOOD COUNT 2.79 X10'6 (4.70-6.10); RED CELL DISTRIBUTION WIDTH 16.1 % (11.5-14.5); WHITE BLOOD COUNT 12.4 X10'3 (4.5-11.0)
[2018-02-10 02:55] LABS: PARTIAL THROMBOPLASTIN TIME 28 SECONDS (22-32); PROTHROMBIN TIME 10.6 SECONDS (9.0-12.0)
[2018-02-10 03:11] LABS: ALANINE AMINOTRANSFERASE 13 U/L (12-78); ALBUMIN 3.1 G/DL (3.4-5.0); ALBUMIN/GLOBULIN RATIO 1.3 (1.1-1.5); ALKALINE PHOSPHATASE 107 IU/L (46-116); ANION GAP 11 (8-16); ASPARTATE AMINO TRANSFERASE 70 U/L (10-37); BILIRUBIN,TOTAL 0.3 MG/DL (0.1-1.0); BLOOD UREA NITROGEN 25 MG/DL (7-18); BUN/CREATININE RATIO 18.2 (5.4-32.0); CALCIUM 9.3 MG/DL (8.5-10.1); CHLORIDE 111 MMOL/L (99-107); CREATININE 1.37 MG/DL (0.60-1.10); GLUCOSE 163 MG/DL (70-104); PHOSPHORUS 5.9 MG/DL (2.3-4.5); POTASSIUM 4.5 MMOL/L (3.5-5.1); SODIUM 143 MMOL/L (135-145); TOTAL CARBON DIOXIDE 21.3 MMOL/L (24-32); TOTAL PROTEIN 5.4 G/DL (6.4-8.2); eGFR 52 ML/MIN
[2018-02-10] MEDS: finasteride 5mg tablet PO SCH ×2 (08:00→16:58)
[2018-02-10] MEDS: mycophenolate mofetil 250mg capsule PO SCH ×3 (08:00→20:30)
[2018-02-10] MEDS: tamsulosin 0.4mg capsule PO SCH (08:52)
[2018-02-10] MEDS: vancomycin/NS 1 GM ADD-VANTAGE 250 ML IV SCH (08:52)
[2018-02-10] MEDS: docusate sod 100mg capsule PO SCH ×2 (08:53→20:30)
[2018-02-10] MEDS: aspirin 325mg tablet, delayed-release (Ecotrin) PO SCH (08:53)
[2018-02-10] MEDS: metoprolol tartrate 12.5mg (1/2 tablet) PO SCH ×2 (08:53→20:30)
[2018-02-10] MEDS: mupirocin 2% nasal ointment 1gm UD NS SCH (08:53)
[2018-02-10] MEDS: atorvastatin 10mg tablet PO SCH (08:53)
[2018-02-10] MEDS: pantoprazole 40mg Tablet.DR PO SCH (08:53)
[2018-02-10] MEDS: HYDROcodone/acetaminophen 10/325mg tab PO PRN ×3 (08:54→23:28)
[2018-02-10] MEDS: insulin Lispro (HumaLOG) vial - multi-dose SQ SCH ×4 (11:44→21:07)
[2018-02-10] MEDS ORDERED: ceFAZolin 1GM/D5W- ADD-VANTAGE 50 ML IV SCH (18:53)
[2018-02-10] MEDS ORDERED: vancomycin/NS 1 GM ADD-VANTAGE 250 ML IV PRN (19:00)
[2018-02-10] MEDS: normal saline 1000ml 1,000 ML IV SCH (19:11)
[2018-02-10] MEDS ORDERED: magnesium 1gm/100ml D5W IVPB 100 ML IV PRN (19:15)
[2018-02-10] MEDS ORDERED: magnesium 4gm in 100ml NS 100 ML IV PRN (19:15)
[2018-02-10] MEDS ORDERED: potassium Cl 40MEQ/250ML bag 250 ML IV SCH (19:15)
[2018-02-10] MEDS ORDERED: sodium phosphate inj. 30 MMOL in dextrose 5%-water 250 ML IV PRN (19:15)
[2018-02-10] MEDS ORDERED: potassium Cl 40MEQ/250ML bag 250 ML IV PRN (19:15)
[2018-02-10] MEDS ORDERED: Neutra Phos packet PO PRN (19:15)
[2018-02-10] MEDS ORDERED: magnesium Cl slow-release 64mg tablet PO PRN (19:15)
[2018-02-10] MEDS ORDERED: potassium Cl 40MEQ/NS 500ml 500 ML IV PRN ×2 (19:15)
[2018-02-10] MEDS ORDERED: potassium Cl 20 mEq SR tablet PO PRN ×2 (19:15)
[2018-02-10] MEDS ORDERED: sodium phosphate inj. 15 MMOL in dextrose 5%-water 150 ML IV PRN (19:15)
[2018-02-10] MEDS: tacrolimus anhydrous 1mg capsule PO SCH (20:31)
[2018-02-10] MEDS ORDERED: dextrose ORAL solution 15 GM/59 ML bottle PO PRN ×2 (20:50)
[2018-02-10] MEDS ORDERED: MESSAGE TO PHARMACY PO ONE (20:50)
[2018-02-10] MEDS ORDERED: dextrose 50%-water 50ml dispensing syringe IV PRN ×2 (20:50)
[2018-02-10] MEDS ORDERED: glucagon, human recombinant 1mg kit SUBCUT PRN (20:50)
[2018-02-10] MEDS: insulin glargine (Lantus) pen - multi-dose SQ SCH (21:05)
[2018-02-11] VITALS (24 sets, daily range): BP systolic 131–197; BP diastolic 58–82
[2018-02-11 03:06] LABS: BASOPHILS % (AUTO) 0 % (0-1); EOSINOPHILS # (AUTO) 0.2 X10'3 (0-0.9); EOSINOPHILS % (AUTO) 1.4 % (0-6); HEMOGLOBIN 7.3 g/dl (14.0-17.9); LYMPHOCYTES # (AUTO) 0.3 X10'3 (1.1-4.8); LYMPHOCYTES % (AUTO) 2.4 % (21-51); MEAN CORPUSCULAR HEMOGLOBIN 29.3 PG (27.0-31.0); MEAN CORPUSCULAR HGB CONC 33.7 % (33.0-36.5); MEAN CORPUSCULAR VOLUME 87.1 FL (78-98); MEAN PLATELET VOLUME 9.4 FL (7.4-10.4); MONOCYTES % (AUTO) 8.2 % (2-12); PLATELET COUNT 80 X10'3 (140-440); RED CELL DISTRIBUTION WIDTH 16.8 % (11.5-14.5); WHITE BLOOD COUNT 12.4 X10'3 (4.5-11.0)
[2018-02-11 03:11] LABS: HEMATOCRIT 21.7 % (42.0-52.0)
[2018-02-11 03:16] LABS: ALBUMIN 3.2 G/DL (3.4-5.0); ANION GAP 10 (8-16); BLOOD UREA NITROGEN 36 MG/DL (7-18); BUN/CREATININE RATIO 26.1 (5.4-32.0); CALCIUM 8.9 MG/DL (8.5-10.1); CHLORIDE 104 MMOL/L (99-107); CREATININE 1.38 MG/DL (0.60-1.10); GLUCOSE 279 MG/DL (70-104); MAGNESIUM 2.8 MG/DL (1.5-2.4); PHOSPHORUS 4.8 MG/DL (2.3-4.5); POTASSIUM 5.3 MMOL/L (3.5-5.1); SODIUM 137 MMOL/L (135-145); TOTAL CARBON DIOXIDE 23.4 MMOL/L (24-32); eGFR 52 ML/MIN
[2018-02-11 07:04] LABS: VANCOMYCIN,RANDOM 12.9 UG/ML
[2018-02-11] MEDS: atorvastatin 10mg tablet PO SCH (07:46)
[2018-02-11] MEDS: tacrolimus anhydrous 1mg capsule PO SCH ×2 (07:46→19:07)
[2018-02-11] MEDS: tamsulosin 0.4mg capsule PO SCH (07:46)
[2018-02-11] MEDS: aspirin 325mg tablet, delayed-release (Ecotrin) PO SCH (07:47)
[2018-02-11] MEDS: pantoprazole 40mg Tablet.DR PO SCH (07:47)
[2018-02-11] MEDS: mycophenolate mofetil 250mg capsule PO SCH ×2 (07:47→19:07)
[2018-02-11] MEDS: metoprolol tartrate 12.5mg (1/2 tablet) PO SCH (07:47)
[2018-02-11] MEDS: docusate sod 100mg capsule PO SCH ×2 (07:47→19:07)
[2018-02-11] MEDS ORDERED: ceFAZolin 1GM/D5W- ADD-VANTAGE 50 ML IV ONE (08:00)
[2018-02-11] MEDS: finasteride 5mg tablet PO SCH (08:09)
[2018-02-11] MEDS: insulin Lispro (HumaLOG) vial - multi-dose SQ SCH ×3 (08:21→21:13)
[2018-02-11] MEDS: HYDROcodone/acetaminophen 10/325mg tab PO PRN ×3 (09:10→23:53)
[2018-02-11] MEDS: carvedilol 6.25mg tablet PO SCH ×2 (09:12→19:07)
[2018-02-11] MEDS: losartan 25mg tablet PO SCH (21:08)
[2018-02-11] MEDS: amLODIPine 5mg tablet PO SCH (21:08)
[2018-02-11] MEDS: insulin glargine (Lantus) pen - multi-dose SQ SCH (21:13)
[2018-02-12] VITALS (29 sets, daily range): BP systolic 109–172; BP diastolic 51–81
[2018-02-12 04:26] LABS: BASOPHILS % (AUTO) 0 % (0-1); EOSINOPHILS # (AUTO) 0.1 X10'3 (0-0.9); LYMPHOCYTES # (AUTO) 0.3 X10'3 (1.1-4.8); LYMPHOCYTES % (AUTO) 3.8 % (21-51); MEAN CORPUSCULAR HGB CONC 33.6 % (33.0-36.5); MEAN CORPUSCULAR VOLUME 86.5 FL (78-98); MEAN PLATELET VOLUME 8.8 FL (7.4-10.4); MONOCYTES # (AUTO) 1.2 X10'3 (0-0.9); MONOCYTES % (AUTO) 12.6 % (2-12); NEUTROPHILS # (AUTO) 7.6 X10'3 (1.8-7.7); NEUTROPHILS % (AUTO) 82.6 % (42-75); PLATELET COUNT 89 X10'3 (140-440); RED BLOOD COUNT 2.35 X10'6 (4.70-6.10); RED CELL DISTRIBUTION WIDTH 16.4 % (11.5-14.5); WHITE BLOOD COUNT 9.3 X10'3 (4.5-11.0)
[2018-02-12 04:39] LABS: ALBUMIN 2.9 G/DL (3.4-5.0); ANION GAP 4 (8-16); BLOOD UREA NITROGEN 30 MG/DL (7-18); BUN/CREATININE RATIO 30.3 (5.4-32.0); CHLORIDE 105 MMOL/L (99-107); CREATININE 0.99 MG/DL (0.60-1.10); GLUCOSE 196 MG/DL (70-104); MAGNESIUM 2.4 MG/DL (1.5-2.4); PHOSPHORUS 2.5 MG/DL (2.3-4.5); SODIUM 135 MMOL/L (135-145); TOTAL CARBON DIOXIDE 26.3 MMOL/L (24-32); eGFR 76 ML/MIN
[2018-02-12 04:41] LABS: HEMOGLOBIN 6.8 g/dl (14.0-17.9)
[2018-02-12 04:42] LABS: HEMATOCRIT 20.3 % (42.0-52.0)
[2018-02-12] MEDS: pantoprazole 40mg Tablet.DR PO SCH (07:39)
[2018-02-12] MEDS: docusate sod 100mg capsule PO SCH ×2 (07:40→20:11)
[2018-02-12] MEDS: tamsulosin 0.4mg capsule PO SCH (07:40)
[2018-02-12] MEDS: carvedilol 6.25mg tablet PO SCH ×2 (07:40→20:11)
[2018-02-12] MEDS: finasteride 5mg tablet PO SCH (07:40)
[2018-02-12] MEDS: mycophenolate mofetil 250mg capsule PO SCH ×2 (07:40→20:11)
[2018-02-12] MEDS: aspirin 81mg tablet.DR PO SCH (07:40)
[2018-02-12] MEDS: atorvastatin 10mg tablet PO SCH (07:40)
[2018-02-12] MEDS: tacrolimus anhydrous 1mg capsule PO SCH ×2 (07:40→20:11)
[2018-02-12] MEDS: insulin Lispro (HumaLOG) vial - multi-dose SQ SCH ×3 (08:18→18:58)
[2018-02-12] MEDS ORDERED: magnesium hydroxide 30ml (MOM) UD suspension PO PRN (09:45)
[2018-02-12] MEDS: HYDROcodone/acetaminophen 10/325mg tab PO PRN ×2 (13:07→17:12)
[2018-02-12] MEDS: Protein Smoothie (high protein) 240ml (8oz) cup PO SCH (18:19)
[2018-02-12] MEDS: normal saline 1000ml 1,000 ML IV SCH (18:32)
[2018-02-12] MEDS: amLODIPine 5mg tablet PO SCH (21:05)
[2018-02-12] MEDS: losartan 25mg tablet PO SCH (21:06)
[2018-02-12] MEDS: insulin glargine (Lantus) pen - multi-dose SQ SCH (21:07)
[2018-02-12] MEDS: sennosides 8.6mg tablet PO SCH (21:47)
[2018-02-13] VITALS (11 sets, daily range): BP systolic 109–161; BP diastolic 52–67
[2018-02-13 04:03] LABS: BASOPHILS % (AUTO) 0.1 % (0-1); EOSINOPHILS % (AUTO) 0.4 % (0-6); HEMATOCRIT 26.3 % (42.0-52.0); HEMOGLOBIN 9.1 g/dl (14.0-17.9); LYMPHOCYTES # (AUTO) 0.6 X10'3 (1.1-4.8); LYMPHOCYTES % (AUTO) 8.6 % (21-51); MEAN CORPUSCULAR HEMOGLOBIN 30.2 PG (27.0-31.0); MEAN CORPUSCULAR HGB CONC 34.5 % (33.0-36.5); MEAN CORPUSCULAR VOLUME 87.7 FL (78-98); MEAN PLATELET VOLUME 8.9 FL (7.4-10.4); MONOCYTES # (AUTO) 1.2 X10'3 (0-0.9); MONOCYTES % (AUTO) 16.9 % (2-12); NEUTROPHILS # (AUTO) 5.2 X10'3 (1.8-7.7); PLATELET COUNT 103 X10'3 (140-440); RED CELL DISTRIBUTION WIDTH 16.2 % (11.5-14.5)
[2018-02-13 04:15] LABS: ANION GAP 3 (8-16); BLOOD UREA NITROGEN 25 MG/DL (7-18); CALCIUM 8.8 MG/DL (8.5-10.1); CHLORIDE 102 MMOL/L (99-107); GLUCOSE 175 MG/DL (70-104); MAGNESIUM 1.9 MG/DL (1.5-2.4); PHOSPHORUS 2.2 MG/DL (2.3-4.5); POTASSIUM 4.6 MMOL/L (3.5-5.1); SODIUM 132 MMOL/L (135-145); TOTAL CARBON DIOXIDE 26.6 MMOL/L (24-32); eGFR 75 ML/MIN
[2018-02-13] MEDS: HYDROcodone/acetaminophen 10/325mg tab PO PRN ×4 (04:41→23:21)
[2018-02-13] MEDS ORDERED: magnesium Cl slow-release 64mg tablet PO PRN (06:45)
[2018-02-13] MEDS ORDERED: potassium Cl 20 mEq SR tablet PO PRN ×2 (06:45)
[2018-02-13] MEDS ORDERED: magnesium 1gm/100ml D5W IVPB 100 ML IV PRN (06:45)
[2018-02-13] MEDS ORDERED: magnesium 4gm in 100ml NS 100 ML IV PRN (06:45)
[2018-02-13] MEDS ORDERED: potassium Cl 40MEQ/NS 500ml 500 ML IV PRN ×2 (06:45)
[2018-02-13] MEDS: pantoprazole 40mg Tablet.DR PO SCH (07:52)
[2018-02-13] MEDS: finasteride 5mg tablet PO SCH (07:52)
[2018-02-13] MEDS: mycophenolate mofetil 250mg capsule PO SCH ×2 (07:53→20:21)
[2018-02-13] MEDS: tamsulosin 0.4mg capsule PO SCH (07:53)
[2018-02-13] MEDS: carvedilol 6.25mg tablet PO SCH ×2 (07:53→20:23)
[2018-02-13] MEDS: magnesium Cl slow-release 64mg tablet PO SCH ×2 (07:53→20:23)
[2018-02-13] MEDS: docusate sod 100mg capsule PO SCH ×2 (07:53→20:21)
[2018-02-13] MEDS: atorvastatin 10mg tablet PO SCH (07:53)
[2018-02-13] MEDS: aspirin 81mg tablet.DR PO SCH (07:53)
[2018-02-13] MEDS: tacrolimus anhydrous 1mg capsule PO SCH ×2 (07:53→20:22)
[2018-02-13] MEDS: potassium Cl 20 mEq SR tablet PO SCH ×2 (08:00→20:00)
[2018-02-13] MEDS ORDERED: K and/or MAG REPLACEMENT MC SCH (08:00)
[2018-02-13] MEDS: Protein Smoothie (high protein) 240ml (8oz) cup PO SCH ×3 (08:11→18:20)
[2018-02-13] MEDS: insulin Lispro (HumaLOG) vial - multi-dose SQ SCH ×2 (19:31→22:11)
[2018-02-13] MEDS: sennosides 8.6mg tablet PO SCH (20:21)
[2018-02-13] MEDS: amLODIPine 5mg tablet PO SCH (20:23)
[2018-02-13] MEDS: losartan 25mg tablet PO SCH (20:24)
[2018-02-13] MEDS: insulin glargine (Lantus) pen - multi-dose SQ SCH (21:00)
[2018-02-14 03:00] VITALS: BP 158/56
[2018-02-14 06:00] VITALS: BP 142/58
[2018-02-14] MEDS: aspirin 81mg tablet.DR PO SCH (08:00)
[2018-02-14] MEDS: Protein Smoothie (high protein) 240ml (8oz) cup PO SCH (08:00)
[2018-02-14 08:20] LABS: ALBUMIN 2.9 G/DL (3.4-5.0); ANION GAP 10 (8-16); BLOOD UREA NITROGEN 25 MG/DL (7-18); BUN/CREATININE RATIO 23.6 (5.4-32.0); CALCIUM 8.8 MG/DL (8.5-10.1); CHLORIDE 102 MMOL/L (99-107); CREATININE 1.06 MG/DL (0.60-1.10); GLUCOSE 132 MG/DL (70-104); POTASSIUM 4.7 MMOL/L (3.5-5.1); SODIUM 136 MMOL/L (135-145); TOTAL CARBON DIOXIDE 23.9 MMOL/L (24-32); eGFR 71 ML/MIN
[2018-02-14 08:21] LABS: BASOPHILS % (AUTO) 0.1 % (0-1); EOSINOPHILS # (AUTO) 0.1 X10'3 (0-0.9); EOSINOPHILS % (AUTO) 2.7 % (0-6); HEMATOCRIT 26.9 % (42.0-52.0); HEMOGLOBIN 9.1 g/dl (14.0-17.9); LYMPHOCYTES # (AUTO) 0.6 X10'3 (1.1-4.8); LYMPHOCYTES % (AUTO) 11.5 % (21-51); MEAN CORPUSCULAR HEMOGLOBIN 30.1 PG (27.0-31.0); MEAN CORPUSCULAR HGB CONC 33.8 % (33.0-36.5); MEAN PLATELET VOLUME 9.2 FL (7.4-10.4); MONOCYTES % (AUTO) 18.9 % (2-12); NEUTROPHILS # (AUTO) 3.6 X10'3 (1.8-7.7); NEUTROPHILS % (AUTO) 66.8 % (42-75); PLATELET COUNT 119 X10'3 (140-440); RED BLOOD COUNT 3.02 X10'6 (4.70-6.10); RED CELL DISTRIBUTION WIDTH 15.9 % (11.5-14.5); WHITE BLOOD COUNT 5.4 X10'3 (4.5-11.0)
[2018-02-14] MEDS: insulin Lispro (HumaLOG) vial - multi-dose SQ SCH ×3 (09:08→21:34)
[2018-02-14] MEDS: pantoprazole 40mg Tablet.DR PO SCH (09:11)
[2018-02-14] MEDS: atorvastatin 10mg tablet PO SCH (09:11)
[2018-02-14] MEDS: tamsulosin 0.4mg capsule PO SCH (09:12)
[2018-02-14] MEDS: tacrolimus anhydrous 1mg capsule PO SCH ×2 (09:12→21:29)
[2018-02-14] MEDS: magnesium Cl slow-release 64mg tablet PO SCH ×2 (09:12→19:49)
[2018-02-14] MEDS: carvedilol 6.25mg tablet PO SCH ×2 (09:12→19:51)
[2018-02-14] MEDS: HYDROcodone/acetaminophen 10/325mg tab PO PRN ×2 (09:13→16:16)
[2018-02-14] MEDS: mycophenolate mofetil 250mg capsule PO SCH ×2 (09:13→21:29)
[2018-02-14] MEDS: potassium Cl 20 mEq SR tablet PO SCH ×2 (09:14→20:00)
[2018-02-14] MEDS: docusate sod 100mg capsule PO SCH ×2 (09:14→19:51)
[2018-02-14] MEDS: finasteride 5mg tablet PO SCH (09:14)
[2018-02-14 09:35] LABS: PLATELET ESTIMATE DECREASED
[2018-02-14 09:41] LABS: ANISOCYTOSIS 1+; ELLIPTOCYTES 1+; POLYCHROMASIA FEW; SCHISTOCYTES FEW
[2018-02-14 11:00] VITALS: BP 141/60
[2018-02-14 15:00] VITALS: BP 141/59
[2018-02-14 19:00] VITALS: BP 144/47
[2018-02-14] MEDS: amLODIPine 5mg tablet PO SCH (21:28)
[2018-02-14] MEDS: losartan 25mg tablet PO SCH (21:28)
[2018-02-14] MEDS: sennosides 8.6mg tablet PO SCH (21:28)
[2018-02-14] MEDS: insulin glargine (Lantus) pen - multi-dose SQ SCH (21:34)
[2018-02-14 23:00] VITALS: BP 155/59
[2018-02-15 03:00] VITALS: BP 158/62
[2018-02-15 06:00] VITALS: BP_SYST 116; BP_SYST 178; BP_DIAS 74; BP_DIAS 87
[2018-02-15 08:12] LABS: BASOPHILS % (AUTO) 0 % (0-1); EOSINOPHILS # (AUTO) 0.2 X10'3 (0-0.9); EOSINOPHILS % (AUTO) 2.8 % (0-6); HEMATOCRIT 25.7 % (42.0-52.0); HEMOGLOBIN 8.8 g/dl (14.0-17.9); LYMPHOCYTES # (AUTO) 0.6 X10'3 (1.1-4.8); LYMPHOCYTES % (AUTO) 8.4 % (21-51); MEAN CORPUSCULAR HEMOGLOBIN 29.9 PG (27.0-31.0); MEAN CORPUSCULAR HGB CONC 34.1 % (33.0-36.5); MEAN CORPUSCULAR VOLUME 87.9 FL (78-98); MEAN PLATELET VOLUME 9.1 FL (7.4-10.4); NEUTROPHILS # (AUTO) 4.9 X10'3 (1.8-7.7); NEUTROPHILS % (AUTO) 73.8 % (42-75); PLATELET COUNT 135 X10'3 (140-440); RED BLOOD COUNT 2.92 X10'6 (4.70-6.10); RED CELL DISTRIBUTION WIDTH 15.9 % (11.5-14.5); WHITE BLOOD COUNT 6.7 X10'3 (4.5-11.0)
[2018-02-15 08:25] LABS: ANION GAP 5 (8-16); BLOOD UREA NITROGEN 21 MG/DL (7-18); BUN/CREATININE RATIO 24.1 (5.4-32.0); CHLORIDE 102 MMOL/L (99-107); CREATININE 0.87 MG/DL (0.60-1.10); GLUCOSE 190 MG/DL (70-104); POTASSIUM 4.9 MMOL/L (3.5-5.1); SODIUM 134 MMOL/L (135-145); TOTAL CARBON DIOXIDE 26.6 MMOL/L (24-32); eGFR 89 ML/MIN
[2018-02-15] MEDS: insulin Lispro (HumaLOG) vial - multi-dose SQ SCH (08:52)
[2018-02-15] MEDS: atorvastatin 10mg tablet PO SCH (08:53)
[2018-02-15] MEDS: docusate sod 100mg capsule PO SCH (08:53)
[2018-02-15] MEDS: magnesium Cl slow-release 64mg tablet PO SCH (08:53)
[2018-02-15] MEDS: aspirin 81mg tablet.DR PO SCH (08:53)
[2018-02-15] MEDS: potassium Cl 20 mEq SR tablet PO SCH (08:54)
[2018-02-15] MEDS: mycophenolate mofetil 250mg capsule PO SCH (08:54)
[2018-02-15] MEDS: finasteride 5mg tablet PO SCH (08:54)
[2018-02-15] MEDS: tamsulosin 0.4mg capsule PO SCH (08:54)
[2018-02-15] MEDS: tacrolimus anhydrous 1mg capsule PO SCH (08:54)
[2018-02-15] MEDS: carvedilol 6.25mg tablet PO SCH (08:54)
[2018-02-15] MEDS: pantoprazole 40mg Tablet.DR PO SCH (08:57)
== END 2018-02-15 11:35 | DRG 235 ==
LOC: ER 10:28 → ED HOLD 12:52 → PCU 3S 15:14 → PACU 02-09 07:40 → CICU 2S 02-09 12:48 → PCU 3S 02-13 12:55
PROVIDERS: ADMIT Family Medicine; ATTEND Thoracic Surgery (Cardiothoracic Vascular Surgery)
PROC: 0211093 Bypass Coronary Artery, Two Arteries from Coronary Artery with Autologous Venous Tissue, Open Approach (ICD-10-PCS; 2018-02-09)
PROC: 06BY4ZZ Excision of Lower Vein, Percutaneous Endoscopic Approach (ICD-10-PCS; 2018-02-09)
PROC: B246ZZ4 Ultrasonography of Right and Left Heart, Transesophageal (ICD-10-PCS; 2018-02-09)
PROC: 5A1221Z Performance of Cardiac Output, Continuous (ICD-10-PCS; 2018-02-09)
PROC: 02HV33Z Insertion of Infusion Device into Superior Vena Cava, Percutaneous Approach (ICD-10-PCS; 2018-02-09)
PROC: 02100Z9 Bypass Coronary Artery, One Artery from Left Internal Mammary, Open Approach (ICD-10-PCS; principal; 2018-02-09 07:46)
PROC: 30233N1 Transfusion of Nonautologous Red Blood Cells into Peripheral Vein, Percutaneous Approach (ICD-10-PCS; 2018-02-12)
DX: I25.110 Atherosclerotic heart disease of native coronary artery with unstable angina pectoris (principal); N18.6 End stage renal disease; I13.2 Hypertensive heart and chronic kidney disease with heart failure and with stage 5 chronic kidney disease, or end stage renal disease; Z94.0 Kidney transplant status; N17.9 Acute kidney failure, unspecified; G47.33 Obstructive sleep apnea (adult) (pediatric); N40.0 Benign prostatic hyperplasia without lower urinary tract symptoms; I50.9 Heart failure, unspecified; E11.22 Type 2 diabetes mellitus with diabetic chronic kidney disease; E78.5 Hyperlipidemia, unspecified; I87.8 Other specified disorders of veins; E78.00 Pure hypercholesterolemia, unspecified; I25.2 Old myocardial infarction; Z79.4 Long term (current) use of insulin; Z79.82 Long term (current) use of aspirin; Z79.899 Other long term (current) drug therapy; Z88.8 Allergy status to other drugs, medicaments and biological substances; Z87.440 Personal history of urinary (tract) infections; Z87.891 Personal history of nicotine dependence
CPT/HCPCS: 0232T; 93312; 93325; 99285; 36415; 36600; 71045; 71046; 80048; 80053; 80197; 80202; 81001; 82330; 82435; 82542; 82803; 82947; 82948; 83036; 83735; 84100; 84132; 84295; 84484; 85018; 85025; 85347; 85384; 85610; 85730; 86885; 86900; 86901; 86920; 87070; 87088; 88305; 93005; 93880; 93970; 94002; 94010; 94668; 94760; 97110; 97116; 97162; 97530; A6213; A6255; A6257; A6258; A6402; A6446; A6449; A7000; A7015; A7048; C1751; J0171; J0690; J1644; J1815; J2001; J2060; J2150; J2185; J2250; J2270; J2370; J2405; J2440; J2704; J2720; J2930; J3370; J3475; J3480; J3490; J7030; J7060; J7120; J7507; J7517; P9016; P9045; P9047

== ENCOUNTER 2018-02-19 19:34 | Emergency (ER) | payer MEDICARE, MEDICAID ==
[~2018-02-19] VITALS: Ht 170.2 cm; Wt 80.0 kg
[~2018-02-19 19:34] MED LIST changes: +INSU100C4 SQ; -MULT-342 PO; -PANT40TA4 PO
[2018-02-19 19:45] VITALS: BP 149/57
[2018-02-19] MEDS ORDERED: DIAZ5TAB PO (20:09)
== END 2018-02-19 21:19 | disposition home or self-care (01) ==
LOC: ER 19:34
DX: R42 Dizziness and giddiness (principal); I25.10 Atherosclerotic heart disease of native coronary artery without angina pectoris; I50.9 Heart failure, unspecified; I11.0 Hypertensive heart disease with heart failure; Z95.1 Presence of aortocoronary bypass graft; Z94.0 Kidney transplant status; Z88.8 Allergy status to other drugs, medicaments and biological substances; Z79.82 Long term (current) use of aspirin; Z79.899 Other long term (current) drug therapy; Z79.4 Long term (current) use of insulin
CPT/HCPCS: 93005; 99283

== ENCOUNTER 2021-12-15 15:28 | Emergency (ER) | payer MEDICARE, MEDICAID ==
[~2021-12-15] VITALS: Ht 165.1 cm; Wt 85.0 kg
[~2021-12-15 15:28] MED LIST changes: -AMLO10TA PO; +ATOR-2 PO; -CALCIUM ACETATE; -CARV6.253 PO; +FAMO20TA8 PO; -FERR325T28 PO; -FURO-150 PO; +FURO40TA4 PO; -INSU100C4 SQ; +ISOS120T13 PO; -LANTUS SUBCUT; +LOSA100T57 PO; -LOSA25TA96 PO; -MYCO250C46 PO; +MYCO500T5 PO; -SIMV20TA PO; +TACR1CAP PO; +TACR1CAP24 PO; -TACR1CAP28 PO
[2021-12-15 16:27] VITALS: BP 158/57
== END 2021-12-15 19:09 | disposition home or self-care (01) ==
LOC: ER 15:29
DX: R60.0 Localized edema (principal); I25.10 Atherosclerotic heart disease of native coronary artery without angina pectoris; I11.0 Hypertensive heart disease with heart failure; I50.9 Heart failure, unspecified; J44.9 Chronic obstructive pulmonary disease, unspecified; E11.9 Type 2 diabetes mellitus without complications; Z98.890 Other specified postprocedural states; Z88.8 Allergy status to other drugs, medicaments and biological substances; Z79.82 Long term (current) use of aspirin; Z79.899 Other long term (current) drug therapy
CPT/HCPCS: 99281

== ENCOUNTER 2021-12-17 13:51 | Emergency (ER) | payer MEDICARE, MEDICAID ==
[~2021-12-17] VITALS: Ht 157.5 cm; Wt 73.6 kg
[2021-12-17 14:51] LABS: CLARITY,URINE CLEAR (Clear); COLOR,URINE YELLOW (Yellow); GLUCOSE, URINE NEGATIVE (Neg); KETONES,URINE NEGATIVE (Neg); LEUKOCYTE ESTERASE ,URINE NEGATIVE (Neg); NITRITES, URINE NEGATIVE (Neg); OCCULT BLOOD,URINE NEGATIVE (Neg); PROTEIN,URINE NEGATIVE (Neg); UROBILINOGEN,URINE 0.2 E.U/dL (0.2-1.0)
[2021-12-17 14:59] LABS: UA COLLECTION TYPE CLN CATCH MIDSTREAM
[2021-12-17 15:12] LABS: BASOPHILS % (AUTO) 0.2 % (0-1); HEMATOCRIT 26.8 % (42.0-52.0); HEMOGLOBIN 8.5 g/dl (14.0-17.9); LYMPHOCYTES # (AUTO) 0.7 X10'3 (1.1-4.8); LYMPHOCYTES % (AUTO) 15.2 % (21-51); MEAN CORPUSCULAR HEMOGLOBIN 29.3 PG (27.0-31.0); MEAN CORPUSCULAR HGB CONC 31.7 g/dL (33.0-36.5); MEAN CORPUSCULAR VOLUME 92.3 FL (78-98); MEAN PLATELET VOLUME 8.6 FL (7.4-10.4); MONOCYTES # (AUTO) 0.5 X10'3 (0-0.9); MONOCYTES % (AUTO) 11.8 % (2-12); NEUTROPHILS # (AUTO) 3.1 X10'3 (1.8-7.7); NEUTROPHILS % (AUTO) 71.8 % (42-75); PLATELET COUNT 166 X10'3 (140-440); RED CELL DISTRIBUTION WIDTH 15.3 % (11.5-14.5); WHITE BLOOD COUNT 4.3 X10'3 (4.5-11.0)
[2021-12-17 15:22] LABS: APTT 29 SECONDS (22-32); D-DIMER 0.85 MG/L FEU (0-0.50)
[2021-12-17 15:27] LABS: ALANINE AMINOTRANSFERASE 19 U/L (12-78); ALBUMIN 2.9 G/DL (3.4-5.0); ALKALINE PHOSPHATASE 204 IU/L (46-116); ANION GAP 7 (8-16); ASPARTATE AMINO TRANSFERASE 32 U/L (10-37); BILIRUBIN,TOTAL 0.4 MG/DL (0.1-1.0); BLOOD UREA NITROGEN 24 MG/DL (7-18); BUN/CREATININE RATIO 19.2 (5.4-32.0); CALCIUM 8.4 MG/DL (8.5-10.1); CHLORIDE 107 MMOL/L (99-107); CREATININE 1.25 MG/DL (0.60-1.10); GLUCOSE 182 MG/DL (70-104); POTASSIUM 4.2 MMOL/L (3.5-5.1); SODIUM 139 MMOL/L (135-145); TOTAL CARBON DIOXIDE 24.9 MMOL/L (24-32); TOTAL PROTEIN 5.9 G/DL (6.4-8.2); eGFR 58 ML/MIN
[2021-12-17 15:29] LABS: LIPASE 223 U/L (73-393)
--- NOTE | 2021-12-17 19:57 | NUR ---
This RN called pt daughter who stated she lives an hour away and will call back regarding picking up her [email or web address] She stated that either she or her brother will come get him. Daughter (JOSÉ LUIS) [phone] Son (Tor) [phone]
[2021-12-17 21:40] VITALS: BP 192/64
== END 2021-12-17 21:42 | disposition home or self-care (01) ==
LOC: ER 13:52
DX: M79.89 Other specified soft tissue disorders (principal); R10.31 Right lower quadrant pain; I25.10 Atherosclerotic heart disease of native coronary artery without angina pectoris; I11.0 Hypertensive heart disease with heart failure; I50.9 Heart failure, unspecified; I10 Essential (primary) hypertension; J44.9 Chronic obstructive pulmonary disease, unspecified; E11.9 Type 2 diabetes mellitus without complications; Z98.890 Other specified postprocedural states; Z88.8 Allergy status to other drugs, medicaments and biological substances; Z79.899 Other long term (current) drug therapy
CPT/HCPCS: 36415; 71045; 71250; 74176; 80053; 81003; 83690; 84484; 85025; 85379; 85610; 85730; 93005; 93971; 99285